=== PATIENT | female | born 1995 | race Caucasian/White ===

== ENCOUNTER 2017-10-05 04:58 | Inpatient (IN) | payer OTHER ==
[2017-10-05 05:35] VITALS: BMI 27.9
[2017-10-05 06:12] LABS: Amnisure Test RUPTURE DETECTED (No Rupture)
[2017-10-05 06:13] LABS: Amnisure Internal Control QC ACCEPTABLE (ACCEPTABLE)
[2017-10-05] MEDS ORDERED: Promethazine HCl 25 MG/ML VIAL IM PRN ×4 (07:00→23:01)
[2017-10-05] MEDS ORDERED: Ondansetron HCl/PF 4 MG/2 ML Vial IVP PRN ×3 (07:00→14:27)
[2017-10-05] MEDS ORDERED: HYDROcodone/Acetaminophen 5/325 mg Tablet PO PRN ×2 (07:00)
[2017-10-05] MEDS ORDERED: Ibuprofen 800 MG TAB PO PRN (07:00)
[2017-10-05] MEDS ORDERED: LR 500 ML/Oxytocin 10 units 500 ML IV SCH ×2 (07:00→08:30)
[2017-10-05] MEDS ORDERED: Methylergonovine 0.2 MG/ML VIAL IM PRN (07:00)
[2017-10-05] MEDS ORDERED: Lidocaine 1% (PF) 30 ML VIAL SC PRN (07:00)
[2017-10-05] MEDS ORDERED: Misoprostol 200 MCG TAB RC PRN (07:00)
[2017-10-05] MEDS ORDERED: Acetaminophen 500 MG TAB PO PRN ×2 (07:00→11:16)
[2017-10-05] MEDS ORDERED: LR / Pitocin 40 units/1000 ml 40 UNITS/1,000 ML BAG IV SCH (07:00)
[2017-10-05] MEDS ORDERED: Lactated Ringer's 1,000 ML IV SCH (07:00)
[2017-10-05 07:21] LABS: Hemoglobin 10.6 g/dL (12.0-16.0); Mean Corpuscular HGB CONC 34.5 g/dL (32.0-36.0); Mean Corpuscular Hemoglobin 30.1 pg (27.0-31.0); Mean Corpuscular Volume 87.2 fl (81.0-99.0); Mean Platelet Volume 7.3 fL (7.4-10.4); Platelet Count 290 thou/uL (130-400); RBC Distribution Width 12.1 % (11.5-14.5); Red Blood Cell (RBC) Count 3.53 mill/uL (4.20-5.40); White Blood Cell (WBC) Count 12.8 thou/uL (4.8-10.8)
[2017-10-05 07:57] LABS: Syphilis Antibody Nonreactive (Nonreactive); Syphilis Antibody Index 0.02 S/CO (<1.00 Non-Reactive)
[2017-10-05 08:05] LABS: Hep B Surf Ag Non-Reactive S/CO (NonReactive)
[2017-10-05] MEDS: LR 500 ML/Oxytocin 10 units 500 ML IV SCH ×2 (08:15→20:43)
--- NOTE | 2017-10-05 13:16 | PDOC.LDPN ---
Labor & Delivery Progress Note - Subjective Subjective: painful contractions - Objective Vital signs reviewed and normal: yes General: breathing through contractions Uterine fundus: palpable contractions Dilation: 3 Effacement: 90% Station: -1 FHT: category 1, variability present ( decreased post stadol ) [place] contractions every: 3 - 185-210 MVU - pit at 12miu/min IUPC placed: yes Plan: continue plan of care, labor augmentation
[2017-10-05] MEDS ORDERED: Fentanyl 4 mcg/Marc 0.1% Cadd 100 ML ONE (13:18)
[2017-10-05] MEDS: Lactated Ringer's 1,000 ML IV SCH ×2 (13:42→19:28)
[2017-10-05] MEDS ORDERED: ePHEDrine/0.9% NaCl/PF SYRINGE 50 mg/10 ml SLOW IVP PRN (14:27)
[2017-10-05] MEDS ORDERED: diphenhydrAMINE 50 MG/ML VIAL IVP PRN ×2 (14:27→23:01)
[2017-10-05] MEDS ORDERED: Acetaminophen 325 MG TAB PO PRN (14:27)
[2017-10-05] MEDS ORDERED: Lactated Ringer's 500 ML IV PRN (14:27)
[2017-10-05] MEDS ORDERED: Eucerin (Mineral Oil/Petrolatum,White) 30 gm Jar TOP PRN ×2 (14:27→23:01)
[2017-10-05] MEDS ORDERED: Naloxone HCl 0.4 mg/ml Vial IVP PRN ×4 (14:27→23:01)
[2017-10-05] MEDS ORDERED: Communication Order-Pharmacy FS SCH ×2 (14:30→23:15)
[2017-10-05] MEDS ORDERED: Fentanyl 4mcg/Marcaine 0.1% Cassette 100 ML EPIDURAL SCH (14:30)
[2017-10-05] MEDS ORDERED: Lidocaine 2% MPF 10 ML AMP (For Epidural Use) ONE (16:08)
--- NOTE | 2017-10-05 16:50 | PDOC.LDPN ---
Labor & Delivery Progress Note - Subjective Subjective: comfortable - Objective Vital signs reviewed and normal: yes General: NAD, resting Uterine fundus: palpable contractions Dilation: 5 Effacement: 90% Station: 0 FHT: category 1 [place] contractions every: 3, MVU 150-80, pit at 18 AROM: clear fluid (forebag noted on exam) Plan: continue plan of care, labor augmentation, pitocin for augmentation
[2017-10-05] MEDS ORDERED: CEFAZOLIN/Water 2 GM/20 ML SYRINGE ONE (22:22)
[2017-10-05] MEDS ORDERED: Bicitra 30 ML UDCUP ONE (22:22)
--- NOTE | 2017-10-05 22:24 | PDOC.LDPN ---
Labor & Delivery Progress Note - Subjective Subjective: comfortable - Objective Vital signs reviewed and normal: yes General: NAD, resting Uterine fundus: non tender Dilation: 6.5 Effacement: 90% Station: 0 FHT: category 1 Plan: other ( arrest of dilitation active phase for 4 hours. will proceed with repeat cs. )
[2017-10-05] MEDS ORDERED: Fentanyl 100 MCG/2 ML VIAL ONE (22:26)
[2017-10-05] MEDS ORDERED: Morphine PF 1 MG/ML SYR ONE (22:27)
[2017-10-05] MEDS ORDERED: Ondansetron HCl/PF 4 MG/2 ML Vial ONE (22:27)
[2017-10-05] MEDS ORDERED: Oxytocin 10 UNITS/ML VIAL ONE ×2 (22:27→23:08)
[2017-10-05] MEDS ORDERED: Lidocaine 2% PF 5 ML VIAL ONE (22:27)
[2017-10-05] MEDS ORDERED: Bicitra 30 ML UDCUP PO SCH (22:30)
[2017-10-05] MEDS ORDERED: CEFAZOLIN/Water 2 GM/20 ML SYRINGE SLOW IVP SCH (22:30)
[2017-10-05] MEDS ORDERED: Ketorolac Tromethamine 30 MG/ML VIAL IVP PRN (23:01)
[2017-10-05] MEDS ORDERED: Naloxone HCl 0.4 mg/ml Vial IV PRN (23:01)
[2017-10-05] MEDS ORDERED: HYDROmorphone 2 MG/ML VIAL SLOW IVP PRN (23:02)
[2017-10-05] MEDS ORDERED: Ketorolac Tromethamine 30 MG/ML VIAL IVP SCH (23:15)
[2017-10-05] MEDS ORDERED: Acetaminophen 1,000 MG in Premix Bag 1 BAG IVPB SCH (23:45)
--- NOTE | 2017-10-05 23:45 | PDOC.PP ---
Post Progress Note Post Day #: 0 PO intake tolerated: no Flatus: no Ambulation: no Weight Weight 143 lb Result Diagrams: 10/05/17 06:40 Additional Labs: Post Labs Blood Type A POSITIVE 10/05/17 06:40 Hep Bs Antigen Non-Reactive S/CO (NonReactive) 10/05/17 06:40 - Assessment/Plan temp 102 post op. exam and hx cw chorioamnoinitis will begin amp gent clinda
[2017-10-05] MEDS ORDERED: Ampicillin 2 GM in Sodium Chloride 0.9% 100 ML IVPB SCH (23:59)
[2017-10-06] MEDS: Clindamycin/D5W 900 MG in Premix Bag 1 BAG IVPB SCH ×3 (00:12→15:37)
[2017-10-06] MEDS ORDERED: Meperidine HCl/PF 25 MG/ML VIAL ONE ×2 (00:26→00:41)
[2017-10-06] MEDS: Meperidine HCl/PF 25 MG/ML VIAL SLOW IVP PRN ×2 (00:28→00:42)
[2017-10-06] MEDS: Ampicillin 2 GM, Syringe 5.2 ML in Sterile Water 14.8 ML SLOW IVP SCH ×4 (01:23→18:50)
[2017-10-06] MEDS ORDERED: Methylergonovine 0.2 MG/ML VIAL IM PRN (02:09)
[2017-10-06] MEDS ORDERED: LR w/ Pitocin 40 units/1000 ML BAG IV SCH (02:09)
[2017-10-06] MEDS ORDERED: diphenhydrAMINE 25 MG CAP PO PRN (02:09)
[2017-10-06] MEDS ORDERED: Lanolin Ointment 7 GM TUBE TOP PRN (02:09)
[2017-10-06] MEDS ORDERED: Meperidine HCl/PF 25 MG/ML VIAL IM PRN (02:09)
[2017-10-06] MEDS ORDERED: HYDROcodone/Acetaminophen 5/325 mg Tablet PO PRN (02:09)
[2017-10-06] MEDS ORDERED: Acetaminophen 325 MG TAB PO PRN (02:09)
[2017-10-06] MEDS ORDERED: Lactated Ringer's 1,000 ML IV SCH (02:09)
[2017-10-06] MEDS ORDERED: Promethazine HCl 25 MG/ML VIAL IM PRN (02:09)
[2017-10-06] MEDS ORDERED: Ondansetron HCl/PF 4 MG/2 ML Vial IVP PRN ×2 (02:09→02:45)
[2017-10-06] MEDS ORDERED: Zolpidem Tartrate 5 MG TAB PO PRN (02:09)
[2017-10-06] MEDS ORDERED: Simethicone Chewable 80 MG TAB PO PRN (02:09)
[2017-10-06] MEDS: Gentamicin Sulfate 80 MG in Premix Bag 1 BAG IVPB SCH ×3 (02:24→17:04)
[2017-10-06] MEDS ORDERED: Naloxone HCl 0.4 mg/ml Vial IV PRN ×3 (02:42→02:45)
[2017-10-06] MEDS: Ketorolac Tromethamine 30 MG/ML VIAL IVP PRN ×3 (03:06→13:59)
--- NOTE | 2017-10-06 05:03 | OP ---
DATE OF OPERATION: 10/05/2017 PREOPERATIVE DIAGNOSIS: Active-phase arrest at 7 cm trial labor after section at 40 weeks and 1 day. POSTOPERATIVE DIAGNOSIS: Active-phase arrest at 7 cm trial labor after section at 40 weeks and 1 day. Chorioamnionitis with intraop temp of 102. PROCEDURE: Repeat low transverse section without extension. SURGEON: Jonathan Cobian MD PMO MANAGER: Frederic Marquez MD ESTIMATED BLOOD LOSS: 900 mL DRAINS: Peters to gravity. COMPLICATIONS: None. DEEP VENOUS THROMBOSIS PROPHYLAXIS: SCDs. ANTIBIOTIC PROPHYLAXIS: Two grams Ancef preincision. OPERATIVE FINDINGS: 1. Vigorous male , 8 and 9 Apgars, cephalic presentation, 8 pounds and 11 ounces, nursery. 2. A very thin lower uterine segment without disruption at time of abdominal entry. 3. Hemostasis with clear urine counts correct during the procedure. DISPOSITION: To the recovery room in good condition. DESCRIPTION OF OPERATIVE PROCEDURE: After obtaining proper informed consent, the patient was taken to the operating room. Previous Pfannenstiel incision identified after prepped and draped and tested to the appropriate level. It was incised sharply and carried down to the fascia, it was incised sharply superiorly and laterally with curved Velasquez scissors. Rectus dissected off superiorly and inferiorly, divided in midline, peritoneum entered bluntly, taking care to avoid trauma to underlying viscera. The bladder flap was somewhat adhesed up on the uterus from previous with dissected sharply off the lower uterine segment. A low transverse hysterotomy incision was made with clear fluid encountered, infant's head elevated through the hysterotomy, resting infant delivered. Cord clamped and cut and handed off to the nursery team in attendance. Usual cord blood samples obtained. Placenta removed manually. Uterus was left in situ and hysterotomy noted to be without extension and closed using a running locking #1 Monocryl suture in a single layer closure. The middle aspect was very thin and with several venous sinuses , chromic oversew of the hysterotomy at the middle level and both vertical and horizontal approaches with [id number] and running locking sutures yielded hemostasis. FloSeal was applied across the hysterotomy. Gutters were suctioned out bilaterally and reinspection of the hysterotomy revealed it to be dry. The Oni 0 retractor was removed. The peritoneum was reapproximated using a 0 chromic suture. Rectus inspected and noted to be dry and the fascia reapproximated with running continuous 0 PDS suture. Subcutaneous tissue was irrigated and rendered hemostatic with Bovie cautery. Skin reapproximated with bryon. Pressure dressing applied, fundal massage revealed a firm uterus with normal blood loss. The patient was taken to recovery room in good condition. Amp/Gent/Clinda started in RR with end of case temp of 102. MTDD
[2017-10-06 06:43] LABS: Hemoglobin 8.9 g/dL (12.0-16.0); Mean Corpuscular HGB CONC 34.4 g/dL (32.0-36.0); Mean Corpuscular Hemoglobin 30.2 pg (27.0-31.0); Mean Corpuscular Volume 87.8 fl (81.0-99.0); Mean Platelet Volume 6.6 fL (7.4-10.4); Platelet Count 214 thou/uL (130-400); Red Blood Cell (RBC) Count 2.95 mill/uL (4.20-5.40); White Blood Cell (WBC) Count 16.6 thou/uL (4.8-10.8)
[2017-10-06] MEDS: Ibuprofen 800 MG TAB PO SCH ×2 (07:50→21:44)
[2017-10-06] MEDS: Prenatal Vitamin 1 TAB PO SCH (07:59)
[2017-10-06] MEDS ORDERED: Adacel (T-DAP) 0.5 ML VIAL IM ONE (09:00)
--- NOTE | 2017-10-06 09:45 | PDOC.PP ---
Post Progress Note Post Day #: 1 PO intake tolerated: yes Flatus: yes Ambulation: no Vital Signs (12 hours) Temp Pulse Resp BP 10/06/17 08:06 98.2 F 112 H 20 109/55 L 10/06/17 05:40 98.3 F 108 H 20 109/61 10/06/17 03:10 98.6 F 107 H 20 116/58 L 10/06/17 02:00 98.3 F 101 H 20 116/56 L Weight Weight 143 lb - Physical Examination General: NAD (bedside pulse sitting 97 by me at this time . pt feels good. no dizziness) Cardiovascular: no m/r/g Respiratory: clear to auscultation bilaterally Abdominal: + bowel sounds, lochia, no distention, appropriately TTP Fundus firm & at: u-4 Extremities: negative homans (B) Skin: CS incision dry & intact Neurological: no gross focal deficits Psychiatric: A&Ox3, normal affect Result Diagrams: 10/06/17 06:17 Additional Labs: Post Labs Blood Type A POSITIVE 10/05/17 06:40 Hep Bs Antigen Non-Reactive S/CO (NonReactive) 10/05/17 06:40 (1) Chorioamnionitis Code(s): O41.1290 - CHORIOAMNIONITIS, UNSP TRIMESTER, NOT APPLICABLE OR UNSP Status: Acute - Assessment/Plan continue abx amp gent clinda watch pulse dont see need for tranfusion at this time will check out to ob hospitalist for weekend and next week care
[2017-10-06] MEDS: HYDROcodone/Acetaminophen 5/325 mg Tablet PO PRN (18:53)
[2017-10-07] MEDS: Ampicillin 2 GM, Syringe 5.2 ML in Sterile Water 14.8 ML SLOW IVP SCH ×5 (00:09→23:58)
[2017-10-07] MEDS ORDERED: Sodium Chloride 0.9% 20 ML ONE (00:52)
[2017-10-07] MEDS: Clindamycin/D5W 900 MG in Premix Bag 1 BAG IVPB SCH ×4 (00:55→23:05)
[2017-10-07] MEDS: Gentamicin Sulfate 80 MG in Premix Bag 1 BAG IVPB SCH ×3 (02:22→17:15)
[2017-10-07] MEDS: HYDROcodone/Acetaminophen 5/325 mg Tablet PO PRN ×3 (03:45→18:32)
[2017-10-07] MEDS: Ibuprofen 800 MG TAB PO SCH ×4 (06:04→21:28)
--- NOTE | 2017-10-07 07:27 | PDOC.PP ---
Post Progress Note Post Day #: 2 PO intake tolerated: yes Flatus: yes Ambulation: yes Vital Signs (12 hours) Temp Pulse Resp BP 10/07/17 04:49 98.1 F 100 20 121/80 10/07/17 04:05 97.7 F 95 18 10/07/17 02:50 97.7 F 95 18 117/84 10/07/17 00:00 98.2 F 97 18 115/71 Weight Weight 143 lb - Physical Examination General: NAD Cardiovascular: RRR Respiratory: non-labored breathing Abdominal: no distention, appropriately TTP Fundus firm & at: umb-2 Extremities: negative homans (B) Skin: CS incision dry & intact Psychiatric: normal affect Result Diagrams: 10/06/17 06:17 Additional Labs: Post Labs Blood Type A POSITIVE 10/05/17 06:40 Hep Bs Antigen Non-Reactive S/CO (NonReactive) 10/05/17 06:40 (1) Term delivered Code(s): O80 - ENCOUNTER FOR FULL-TERM UNCOMPLICATED DELIVERY Status: Acute (2) Chorioamnionitis Code(s): O41.1290 - CHORIOAMNIONITIS, UNSP TRIMESTER, NOT APPLICABLE OR UNSP Status: Acute Qualifiers: Fetus number: single or unspecified fetus Trimester: third trimester Qualified Code(s): O41.1230 - Chorioamnionitis, third trimester, not applicable or unspecified - Assessment/Plan POD2 s/p RCS after failed TOLAC with chorioamnionitis. VSSAF Pulse improved, afebrile since delivery. On A/G/C, cont x 48hr postop, up tonight at midnight. Hgb 8.9 postop, appropriate anemia from surgical blood loss, no sx anemia or ongoing bleeding. DC on Fe. Appropriate postop milestones. Rh pos RImm Cont postop care, poss home tomorrow or Monday.
[2017-10-07] MEDS: Prenatal Vitamin 1 TAB PO SCH (08:22)
[2017-10-08] MEDS: HYDROcodone/Acetaminophen 5/325 mg Tablet PO PRN ×3 (04:49→13:01)
[2017-10-08] MEDS: Ibuprofen 800 MG TAB PO SCH (04:49)
--- NOTE | 2017-10-08 06:23 | PDOC.PP ---
Post Progress Note Post Day #: 3 Subjective: Doing well. Renan po, passing flatus. No BM yet. Able to ambulate well. PO intake tolerated: yes Flatus: yes Ambulation: yes Vital Signs (12 hours) Temp Pulse Resp BP 10/08/17 00:00 98.6 F 10/07/17 20:30 98.2 F 106 H 16 123/72 Weight Weight 143 lb - Physical Examination Cardiovascular: no m/r/g Respiratory: clear to auscultation bilaterally Abdominal: + bowel sounds, no distention, appropriately TTP Extremities: negative homans (B) Skin: CS incision dry & intact (Jazmine in place) Result Diagrams: 10/06/17 06:17 Additional Labs: Post Labs Blood Type A POSITIVE 10/05/17 06:40 Hep Bs Antigen Non-Reactive S/CO (NonReactive) 10/05/17 06:40 (1) Delivered by section Code(s): O82 - ENCOUNTER FOR DELIVERY WITHOUT INDICATION Status: Acute - Assessment/Plan Postop day 3 today, doing well. Afebrile for 24 hours and IV infiltrated last pm so off antibiotics now. Incision C/D/I. Stable for discharge at 12 noon today. Jazmine out 12 or 10/11. Home with tylenol #3 per [facility].
--- NOTE | 2017-10-08 06:27 | PDOC.EVN ---
Event Note - Event Note Event Note: DISCHARGE NOTE ADMIT: 10/05/17 DISCHARGE: 10/08 DX: Delivered by section Metritis History of primary CS for HSV. Admitted at 1cm with SEFERINO. Admitted by [facility]. Patient s/p C/Section for failed TOLAC, s/p repeat CS. DX with metritis and placed on triple antibiotics. Home on 10/08/17 (postop Day 3). Incision C/D/I, stapled closed. Disposition: Home with tylenol #3.
[2017-10-08 08:27] VITALS: TEMP 98.3
[2017-10-08 08:29] VITALS: BP 118/65
[2017-10-08] MEDS: Prenatal Vitamin 1 TAB PO SCH (09:05)
== END 2017-10-08 13:33 | disposition home or self-care (01) | DRG 765 ==
LOC: L&D/OP 04:58 → L&D 07:23 → 3SW 10-06 02:07
PROVIDERS: ADMIT Obstetrics & Gynecology; ATTEND Obstetrics & Gynecology
PROC: 10D00Z1 Extraction of Products of Conception, Low, Open Approach (ICD-10-PCS; principal; 2017-10-05)
PROC: 10907ZC Drainage of Amniotic Fluid, Therapeutic from Products of Conception, Via Natural or Artificial Opening (ICD-10-PCS; 2017-10-05)
PROC: 10H07YZ Insertion of Other Device into Products of Conception, Via Natural or Artificial Opening (ICD-10-PCS; 2017-10-05)
DX: O62.1 Secondary uterine inertia (principal); O41.1230 Chorioamnionitis, third trimester, not applicable or unspecified; O98.52 Other viral diseases complicating childbirth; O34.211 Maternal care for low transverse scar from previous cesarean delivery; Z37.0 Single live birth; Z3A.40 40 weeks gestation of pregnancy; B00.9 Herpesviral infection, unspecified
CPT/HCPCS: 51702; 84112; 85027; 86780; 86850; 86900; 86901; 87340; 99285; A4216; J0131; J0290; J0595; J1580; J1885; J2001; J2175; J2274; J2405; J2550; J2590; J3010; J3490; J7120

== ENCOUNTER 2017-12-01 16:36 | Emergency (ER) | payer OTHER ==
[2017-12-01 17:40] LABS: Bilirubin Negative (Negative); Blood, Urine Large (Negative); Clarity CLEAR (Clear); Glucose, Urine (Dipstick) Negative (Negative); Leukocyte Negative (Negative); Nitrite Negative (Negative); Protein, Urine (Dipstick) Negative (Neg-Trace); Specific Gravity, Urine 1.031 (1.002-1.036); Urobilinogen 0.2 mg/dL (0.2-1.0); pH, Urine 5.5 (5.0-9.0)
[2017-12-01 17:42] LABS: Bacteria/HPF None Seen HPF (None Seen); Hyaline Casts/LPF 4-6 HYALINE CAST LPF (0-3 Hyaline); Pathc Cast-AUWi Flag 0.54 (0-2.49); Pregnancy Test - Urine (BHCG) Negative (Negative); Pregu Control Background? CLEAR/WHITE (CLR/WHITE); Pregu Control Bar Appear? YES (CONTROL BAR); Specific Gravity 1.031 (1.002-1.036); Squamous Epithelial 0-3 HPF (0-3); WBC/HPF 0-3 HPF (0-3)
[2017-12-01 18:36] LABS: #Basophils 0.1 thou/uL (0.0-0.2); #Eosinphils 0.3 thou/uL (0.0-0.7); #Lymphocytes 2.7 thou/uL (1.20-3.40); #Monocytes 0.7 thou/uL (0.11-0.59); %Basophils 1.2 % (0.0-1.0); %Eosinophils 3.3 % (0.0-10.0); %Monocytes 8.8 % (0.0-10.0); %Neutrophils 51.7 % (42.0-75.0); Hemoglobin 12.5 g/dL (12.0-16.0); Mean Corpuscular HGB CONC 33.4 g/dL (32.0-36.0); Mean Corpuscular Hemoglobin 28.5 pg (27.0-31.0); Mean Corpuscular Volume 85.4 fl (81.0-99.0); Mean Platelet Volume 6.6 fL (7.4-10.4); Platelet Count 491 thou/uL (130-400); RBC Distribution Width 12.3 % (11.5-14.5); White Blood Cell (WBC) Count 7.8 thou/uL (4.8-10.8)
--- NOTE | 2017-12-01 20:02 | ULT ---
PELVIC ULTRASOUND: 12/01/17 Transabdominal and endovaginal ultrasound of pelvis performed. HISTORY: Vaginal bleeding. Patient is post October 05 (2 months ago). FINDINGS: The uterine size and sagittal plane measures 8.2 x 3.6 cm. There is a heterogeneous irregularly shape d mass which appears to extend from the uterine myometrium into the left pelvis. Which measures 5 to 6 cm diameter. Both ovaries are identified and appear unremarkable with normal appearing follicles. The left ovary is high and best seen with transabdominal imaging. Color doppler and spectral analysis shows blood flow to both ovaries. No free fluid identified. IMPRESSION: There is abnormal heterogeneous mass which appears to involve the myometrium and projects to the left measuring 5 to 6 cm. Etiology is undetermined. Hematoma would be unlikely given the two month time i nterval since the surgery. Recommend an elective pelvic MRI to better evaluate uterus and adnexa. POS: MICHELLE
[2017-12-01] MEDS ORDERED: metroNIDAZOLE 500 MG TAB PO SCH (20:45)
== END 2017-12-01 21:05 | disposition home or self-care (01) ==
LOC: ERS 16:36
DX: N76.0 Acute vaginitis (principal); B96.89 Other specified bacterial agents as the cause of diseases classified elsewhere; N93.8 Other specified abnormal uterine and vaginal bleeding; F41.9 Anxiety disorder, unspecified; F43.10 Post-traumatic stress disorder, unspecified; F17.210 Nicotine dependence, cigarettes, uncomplicated; Z71.6 Tobacco abuse counseling
CPT/HCPCS: 36415; 76856; 81003; 81015; 81025; 85025; 87480; 87491; 87510; 87591; 87660; 99406

== ENCOUNTER 2017-12-13 19:20 | Emergency (ER) | payer OTHER ==
[2017-12-13 19:52] LABS: #Basophils 0.1 thou/uL (0.0-0.2); #Eosinphils 0.3 thou/uL (0.0-0.7); #Lymphocytes 3.2 thou/uL (1.20-3.40); #Monocytes 0.8 thou/uL (0.11-0.59); #Neutrophils 4.4 thou/uL (1.40-6.50); %Basophils 1.2 % (0.0-1.0); %Eosinophils 3.7 % (0.0-10.0); %Monocytes 8.6 % (0.0-10.0); %Neutrophils 50.6 % (42.0-75.0); Hemoglobin 12.7 g/dL (12.0-16.0); Mean Corpuscular HGB CONC 35.2 g/dL (32.0-36.0); Mean Corpuscular Hemoglobin 29.1 pg (27.0-31.0); Mean Corpuscular Volume 82.8 fl (81.0-99.0); Mean Platelet Volume 6.6 fL (7.4-10.4); Platelet Count 453 thou/uL (130-400); RBC Distribution Width 12.6 % (11.5-14.5); Red Blood Cell (RBC) Count 4.35 mill/uL (4.20-5.40); White Blood Cell (WBC) Count 8.7 thou/uL (4.8-10.8)
[2017-12-13 19:53] LABS: Bilirubin Negative (Negative); Blood, Urine Negative (Negative); Clarity CLEAR (Clear); Glucose, Urine (Dipstick) Negative (Negative); Leukocyte Negative (Negative); Nitrite Negative (Negative); Protein, Urine (Dipstick) Negative (Neg-Trace); Specific Gravity, Urine 1.036 (1.002-1.036); Urobilinogen 0.2 mg/dL (0.2-1.0)
[2017-12-13 20:24] LABS: ALT (SGPT) 37 U/L (8-55); AST (SGOT) 24 U/L (5-34); Albumin 4.8 g/dL (3.5-5.0); Alkaline Phosphatase 95 U/L (40-150); Anion Gap 13 mmol/L (10-20); BUN (Urea Nitrogen) 14 mg/dL (7.0-18.7); Bilirubin, Total 0.2 mg/dL (0.2-1.2); Calc. Creatinine Clearance 0 mL/min (70-130); Calcium 10.1 mg/dL (7.8-10.44); Carbon Dioxide 26 mmol/L (22-29); Chloride 106 mmol/L (98-107); Estimated GFR-MDRD 87; Globulin 3.3 g/dL (2.4-3.5); Glucose 84 mg/dL (70-105); Lipase 44 U/L (8-78); Potassium 3.8 mmol/L (3.5-5.1); Protein, Total 8.1 g/dL (6.0-8.3); Sodium 141 mmol/L (136-145)
[2017-12-13] MEDS ORDERED: Ketorolac Tromethamine 30 MG/ML VIAL ONE (21:23)
--- NOTE | 2017-12-13 23:00 | ULT ---
PELVIC ULTRASOUND 12/13/17 HISTORY: Left lower quadrant pain. COMPARISON: Pelvic ultrasound from 12/01/17. FINDINGS: Both ovaries have a normal appearance. Right ovary measures 2.2 x 1.6 x 2.5 cm. Left ovary measures 1.8 x 3.7 x 1.4 cm. Endometrial thickness is 6 mm. Uterus measures 7.4 x 3.2 x 4.5 cm. There is a hypoechoic area of the anterior wall of the uterine body with internal specular reflectors . This may reflect a large suture granuloma from previous . Scar or endometriosis is also a possibility. No vascularity to this area. IMPRESSION: 1. Along the anterior uterine wall at the expected location of may represent a suture granuloma hypodense material surrounds specular reflectors. Also within the differential is scar endo metriosis. 2. Normal appearance of the ovaries. POS: GARY
== END 2017-12-13 22:44 | disposition home or self-care (01) ==
LOC: ERS 19:20
DX: R10.32 Left lower quadrant pain (principal); F17.210 Nicotine dependence, cigarettes, uncomplicated; F41.9 Anxiety disorder, unspecified; Z79.1 Long term (current) use of non-steroidal anti-inflammatories (NSAID); Z79.899 Other long term (current) drug therapy
CPT/HCPCS: 36415; 76856; 80053; 81003; 83690; 85025; 96372; J1885

== ENCOUNTER 2019-04-26 05:25 | Emergency (ER) | payer OTHER, SELFPAY ==
[2019-04-26] MEDS ORDERED: Acetaminophen 500 MG TAB ONE ×2 (05:45→05:46)
[2019-04-26] MEDS ORDERED: Ondansetron PF 4 MG/2 ML Vial ONE (05:45)
[2019-04-26] MEDS ORDERED: Ketorolac Tromethamine 30 MG/ML VIAL ONE (05:45)
[2019-04-26 05:56] LABS: #Basophils 0.1 thou/uL (0.0-0.2); #Eosinphils 0.2 thou/uL (0.0-0.7); #Lymphocytes 2.2 thou/uL (1.20-3.40); #Monocytes 0.6 thou/uL (0.11-0.59); #Neutrophils 4.2 thou/uL (1.40-6.50); %Eosinophils 2.3 % (0.0-10.0); %Lymphocytes 30.6 % (21.0-51.0); %Monocytes 8.3 % (0.0-10.0); %Neutrophils 57.8 % (42.0-75.0); Hemoglobin 13.5 g/dL (12.0-16.0); Mean Corpuscular HGB CONC 32.2 g/dL (32.0-36.0); Mean Corpuscular Hemoglobin 27.5 pg (27.0-31.0); Mean Corpuscular Volume 85.3 fL (78.0-98.0); Mean Platelet Volume 6.7 fL (7.4-10.4); Platelet Count 411 thou/uL (130-400); RBC Distribution Width 11.3 % (11.5-14.5); Red Blood Cell (RBC) Count 4.91 mill/uL (4.20-5.40); White Blood Cell (WBC) Count 7.3 thou/uL (4.8-10.8)
[2019-04-26 06:13] LABS: BHCG - Serum Negative (NEGATIVE); Pregs Control Background? CLEAR/WHITE (CLR/WHITE); Pregs Control Bar Appear? YES (CONTROL BAR)
[2019-04-26 06:23] LABS: ALT (SGPT) 35 U/L (8-55); AST (SGOT) 19 U/L (5-34); Albumin 4.7 g/dL (3.5-5.0); Alkaline Phosphatase 76 U/L (40-150); Anion Gap 12 mmol/L (10-20); BUN (Urea Nitrogen) 13 mg/dL (7.0-18.7); Bilirubin, Total 0.3 mg/dL (0.2-1.2); Calc. Creatinine Clearance 0 mL/min (70-130); Calcium 9.4 mg/dL (7.8-10.44); Carbon Dioxide 24 mmol/L (22-29); Chloride 104 mmol/L (98-107); Estimated GFR-MDRD Greater than 90; Glucose 91 mg/dL (70-105); Lipase 21 U/L (8-78); Potassium 3.7 mmol/L (3.5-5.1); Protein, Total 7.7 g/dL (6.0-8.3); Sodium 136 mmol/L (136-145)
[2019-04-26 07:08] LABS: Bacteria/HPF None Seen HPF (None Seen); Bilirubin Negative (Negative); Blood, Urine 1+ (Negative); Clarity Clear (Clear); Glucose, Urine (Dipstick) Normal (Negative); Leukocyte Negative Leu/uL (Negative); Nitrite Negative (Negative); Protein, Urine (Dipstick) Negative (Neg-Trace); Urobilinogen Normal mg/dL (Less than 2); WBC/HPF 0-3 HPF (0-3)
--- NOTE | 2019-04-26 08:07 | CT ---
CT ABDOMEN AND PELVIS WITH CONTRAST ENTERIC CONTRAST NOT ADMINISTERED: Date: 04/26/19 INDICATION: Right lower quadrant pain. FINDINGS: There is no CT evidence of acute appendicitis. There is a thin, curvilinear density of the moderately distended gallbladder which suggests a faint volume of gallbladder wall calcium. There is no acute p athology of the solid abdominal organs. The imaged lung bases reveal no consolidation or effusion. Tu bal ligation clips are present. There is moderate distention of the urinary bladder. No ascites or fr ee air. Abdominal aorta is normal caliber. Gas density relating to an indwelling tampon is seen withi n the pelvis. The osseous structures are intact. IMPRESSION: 1. No acute appendicitis. 2. Faint wall calcification of the moderately distended gallbladder. Recommend a dedicated gallbladd er ultrasound for further evaluation. POS: RK
[2019-04-26] MEDS ORDERED: ISOVUE-370 76%-LOCM 1 ML ONE (13:33)
== END 2019-04-26 07:07 | disposition home or self-care (01) ==
LOC: ERS 05:25
DX: R10.31 Right lower quadrant pain (principal); M79.604 Pain in right leg; F17.210 Nicotine dependence, cigarettes, uncomplicated
CPT/HCPCS: 36415; 74177; 80053; 81003; 81015; 83690; 84703; 85025; 96361; 96374; 96375; J1885; J2405; Q9966

== ENCOUNTER 2021-01-07 09:04 | Observation (INO) | payer SELFPAY ==
[2021-01-07] MEDS ORDERED: Ondansetron PF 4 MG/2 ML Vial ONE ×2 (09:43→19:52)
[2021-01-07] MEDS ORDERED: Morphine 4 MG/ML VIAL ONE (09:43)
[2021-01-07 09:57] LABS: Bacteria/HPF None Seen HPF (None Seen); Bilirubin Negative (Negative); Blood, Urine 3+ (Negative); Clarity Turbid (Clear); Glucose, Urine (Dipstick) Normal (Negative); Ketone, Urine Negative (Negative); Leukocyte Negative Leu/uL (Negative); Nitrite Negative (Negative); Protein, Urine (Dipstick) 50 mg/dL (Neg-Trace); Specific Gravity, Urine 1.026 (1.002-1.036); Urobilinogen Normal mg/dL (Less than 2); WBC/HPF 0-3 HPF (0-3)
[2021-01-07 09:58] LABS: Pregnancy Test - Urine (BHCG) Negative (Negative); Pregu Control Background? CLEAR/WHITE (CLR/WHITE); Pregu Control Bar Appear? YES (CONTROL BAR); Specific Gravity 1.026 (1.002-1.036)
[2021-01-07 10:23] LABS: Hemoglobin 13.9 g/dL (12.0-16.0); Mean Corpuscular HGB CONC 33.9 g/dL (32.0-36.0); Mean Corpuscular Hemoglobin 29.3 pg (27.0-31.0); Mean Corpuscular Volume 86.3 fL (78.0-98.0); Mean Platelet Volume 7.3 fL (7.4-10.4); Platelet Count 358 thou/uL (130-400); RBC Distribution Width 11.5 % (11.5-14.5); Red Blood Cell (RBC) Count 4.76 mill/uL (4.20-5.40)
[2021-01-07 10:36] LABS: ALT (SGPT) 37 U/L (8-55); AST (SGOT) 21 U/L (5-34); Albumin 4.6 g/dL (3.5-5.0); Alkaline Phosphatase 84 U/L (40-110); Anion Gap 13 mmol/L (10-20); BUN (Urea Nitrogen) 9 mg/dL (7.0-18.7); Bilirubin, Total 0.4 mg/dL (0.2-1.2); Calc. Creatinine Clearance 0 mL/min (70-130); Calcium 9.3 mg/dL (7.8-10.44); Carbon Dioxide 26 mmol/L (22-29); Chloride 105 mmol/L (98-107); Glucose 94 mg/dL (70-105); Lipase 19 U/L (8-78); Potassium 3.7 mmol/L (3.5-5.1); Protein, Total 7.6 g/dL (6.0-8.3); Sodium 140 mmol/L (136-145)
[2021-01-07 10:46] LABS: Band 17 % (5-11); Eosinophils 2 % (0-10); Lymphocytes 11 % (21-51); MDiff Complete? YES; Monocytes 5 % (0-10); Neutrophil 62 % (42-75); RBC Morphology Normal; Reactive Lymphocytes 3 % (0-10)
[2021-01-07] MEDS ORDERED: Piperacillin/Tazobactam 4.5 GM VIAL ONE (13:41)
[2021-01-07] MEDS ORDERED: Iopamidol-370 76% 500 ML 1 ML ONE (13:52)
[2021-01-07] MEDS ORDERED: Lactated Ringer's 1,000 ML IV SCH (14:00)
[2021-01-07] MEDS ORDERED: Morphine 2 MG/ML VIAL SLOW IVP PRN ×2 (16:42→20:08)
[2021-01-07] MEDS ORDERED: Ondansetron PF 4 MG/2 ML Vial IVP PRN ×2 (16:42→20:08)
[2021-01-07] MEDS ORDERED: Morphine 4 MG/ML VIAL SLOW IVP PRN ×2 (16:42→20:08)
[2021-01-07 16:49] LABS: SARS-CoV-2 NAA Rapid Test Not Detected (NotDetected)
[2021-01-07 17:31] VITALS: BMI 25.4
[2021-01-07] MEDS ORDERED: Bupivacaine 0.25% HCL 30 ML VIAL ONE (19:29)
[2021-01-07] MEDS ORDERED: Lidocaine 1% w/Epinephrine 1:100K 20 ML VIAL ONE (19:29)
[2021-01-07] MEDS ORDERED: Midazolam HCl 2 mg/2 ml Vial ONE (19:39)
[2021-01-07] MEDS ORDERED: Fentanyl 100 MCG/2 ML VIAL ONE ×2 (19:39→21:47)
[2021-01-07] MEDS ORDERED: Rocuronium Bromide 10 MG/ML (10ML VIAL) ONE (19:52)
[2021-01-07] MEDS ORDERED: Lidocaine 1% PF 5 ML VIAL ONE (19:52)
[2021-01-07] MEDS ORDERED: Dexamethasone 20 MG/5 ML VIAL ONE (19:52)
[2021-01-07] MEDS ORDERED: Succinylcholine 200 MG/10 ml SYRINGE FS ONE (19:52)
[2021-01-07] MEDS ORDERED: Ketorolac Tromethamine 30 MG/ML VIAL ONE (19:52)
[2021-01-07] MEDS ORDERED: PHENYLEPHRINE-NS 100 MCG/ML 10 ML SYRINGE ONE (19:52)
[2021-01-07] MEDS ORDERED: PROPOFOL 200 MG/20 ML VIAL ONE (19:52)
[2021-01-07] MEDS ORDERED: hydrALAZINE 20 MG/ML VIAL SLOW IVP PRN (20:08)
[2021-01-07] MEDS ORDERED: HYDROcodone/Acetaminophen 7.5/325 mg Tablet PO PRN (20:08)
[2021-01-07] MEDS ORDERED: Dextrose 5% in Water 1,000 ML IV PRN (20:08)
[2021-01-07] MEDS ORDERED: Promethazine HCl 25 MG/ML VIAL IM PRN (20:08)
[2021-01-07] MEDS ORDERED: Dextrose 50% Abboject 50 ML SYRINGE SLOW IVP PRN (20:08)
[2021-01-07] MEDS ORDERED: D5 1/2 NS w/20 mEq KCL 1,000 ML IV SCH (20:15)
[2021-01-07] MEDS ORDERED: SUGAMMADEX SODIUM 200 MG/2 ML VIAL ONE (20:46)
[2021-01-07] MEDS ORDERED: Famotidine 20 MG TAB PO SCH (21:00)
[2021-01-07] MEDS ORDERED: Famotidine/PF 20 mg/2ml Vial SLOW IVP SCH (21:00)
[2021-01-07] MEDS ORDERED: Meperidine HCl/PF 25 MG/ML VIAL ONE (21:01)
[2021-01-07] MEDS ORDERED: Ondansetron HCl/PF 4 MG/2 ML Vial IVP PRN (21:22)
[2021-01-07 23:32] VITALS: BP 112/70; TEMP 98.3
== END 2021-01-07 23:22 | disposition home or self-care (01) ==
LOC: ERS 09:04 → SJJU 14:22
PROVIDERS: ADMIT Surgery; ATTEND Surgery
PROC: 0DTJ4ZZ Resection of Appendix, Percutaneous Endoscopic Approach (ICD-10-PCS; principal; 2021-01-07)
DX: K35.80 Unspecified acute appendicitis (principal); F17.210 Nicotine dependence, cigarettes, uncomplicated; I70.0 Atherosclerosis of aorta; Z20.822 Contact with and (suspected) exposure to COVID-19
CPT/HCPCS: 36415; 74177; 80053; 81003; 81015; 81025; 83690; 85025; 88304; 96374; 96375; 96376; G0378; J1100; J1885; J2175; J2250; J2270; J2405; J2543; J2704; J3010; Q9967; S0020; U0002